=== PATIENT | male | born 1985 | race Caucasian/White ===

== ENCOUNTER 2017-03-25 20:13 | Emergency (ER) | payer OTHER ==
[~2017-03-25] VITALS: Ht 165.1 cm; Wt 73.8 kg
[2017-03-25] MEDS ORDERED: KETOROLAC 30MG/ML VIAL IV ONE (20:45)
[2017-03-25] MEDS ORDERED: KETOROLAC 60MG/2ML VIAL IM ONE (20:45)
[2017-03-25] MEDS ORDERED: LORAZEPAM 2MG/ML CPJ IV ONE (21:15)
[2017-03-25 23:04] VITALS: BP 127/85
== END 2017-03-26 09:00 | disposition home or self-care (01) ==
LOC: ER 03-26 08:39
DX: S03.00XA Dislocation of jaw, unspecified side, initial encounter (principal); E11.9 Type 2 diabetes mellitus without complications; E78.00 Pure hypercholesterolemia, unspecified; X58.XXXA Exposure to other specified factors, initial encounter; Y93.89 Activity, other specified; Y92.018 Other place in single-family (private) house as the place of occurrence of the external cause
CPT/HCPCS: 21480; 70110; 96374; 96375; 99284; J1885; J2060; Z7610